=== PATIENT | male | born 1970 | race Caucasian/White ===

== ENCOUNTER 2025-05-29 07:25 | Outpatient (AMB) | payer OTHER, SELFPAY ==
--- OUTSIDE RECORDS SUMMARY | 2025-05-29 07:27 | XMS_ITS | Clinical Summary ---
Author Organization [facility] ity Address [address] [place] [address] Care Team Providers Care Cabin Equipment Supervisor Name Role Phone Arvind Amado MD Primary Care Provider [phone] Social History Tobacco Use Types Packs/Day Years Used Date Smoking Tobacco: Never Assessed Sex and Gender Information Value Date Recorded Sex Assigned at Not on file Legal Sex Male 11:36 PM EST Gender Identity Not on file Sexual Orientation Not on file Plan of Treatment Health Maintenance Due Date Last Done Comments DTaP,Tdap,and Td Vaccines (1 - Tdap) 1989 Hepatitis B Vaccines (1 of 3 - 19+ 3-dose series) 1989 Pneumococcal Vaccine: 50+ Ye ars (1 of 1 - PCV) 2020 Zoster Vaccines (1 of 2) 2020 Depression Screening 09/26/2024 COVID-19 Vaccine (1 - 2023-2 5 season) 2025 Influenza Vaccine (#1) 2025 HIB Vaccines Aged Out No longer eligi ble based on patient's age to complete this topic HPV Vaccines Aged Out No longer eligi ble based on patient's age to complete this topic Hepatitis A Vaccines Aged Out No long er eligible based on patient's age to complete this topic IPV Vaccines Aged Out No longer eligi ble based on patient's age to complete this topic MMR Vaccines Aged Out No longer eligi ble based on patient's age to complete this topic Meningococcal ACWY Vaccine Aged Out N o longer eligible based on patient's age to complete this topic Meningococcal B Vaccine Aged Out No l onger eligible based on patient's age to complete this topic RSV Immunization Patients Un cassidy 20 months Aged Out No longer eligible b ased on patient's age to complete this topic Varicella Vaccines Aged Out No longer eligible based on patient's age to complete this topic Care Teams Cabin Equipment Supervisor Relationship Specialty Start Date End Date Arvind Amado MD [address] [place] [id number] PCP - General 01/06/09
--- OUTSIDE RECORDS SUMMARY | 2025-05-29 07:27 | XMS_ITS | Clinical Summary ---
Author Organization [facility] Address [address] [place] [address] Care Team Providers Care Vacation Guide Name Role Phone Unavailable Primary Care Provider Unavailabl e Source Comments PLEASE NOTE, if this patient is a minor, it may be UNLAWFUL to discuss sensitive information that is contained in these records (such as FAMILY PLANNING, MENTAL HEALTH or SUBSTANCE ABUSE) with the minor patient's parent or other person without the patient's specific authorization.[facility] Allergies Active Allergy Reactions Criticality Noted Date Comments Latex Rash 01/14/2016 Medications entacapone (COMTAN) 200 mg tabletIndicati ons:Parkinson' s disease ([facility]) Take 1 Tab by mouth 4 (four) times daily. PER NEURO. 6 Active Miscellaneous Medical Supply miscIndication s:Parkinson's disease ([facility]) by miscellaneous route once daily. URINALS. DX: PARKINSON'S DISEASE 30 Each 1 6 Active carbidopa-levo dopa (SINEMET) 25-100 mg per tabletIndicati ons:Parkinson' s disease ([facility]) Take 1.5 Tabs by mouth 5 (five) times daily. PER NEURO. 6 Active diclofenac (VOLTAREN) 1 % gelIndications :Arthritis of left knee Apply 4 g left knee tid. 100 g 2 7 Active Active Problems Problem Noted Date Diagnosed Date Arthritis of left knee 06/20/2017 Overview (06/20/2017): X-rays 05/29/17 mild degenerative changes within lateral tibiofemoral compartment Parkinson's disease ([facility]) 01/14/2016 Overview (01/14/2016): Dx: 1995; f/u with Neurologist Dr. Benavides in [place] S/P deep brain stimulator placement ~2005 Social History Tobacco Use Types Packs/Day Years Used Date Smoking Tobacco: Never Smokeless Tobacco: Never Alcohol Use Standard Drinks/Week Comments No 0 (1 standard drink = 0.6 oz pur e alcohol) Social Connections Answer Date Recorded Social Connections and Isolation 0 05/19/2019 Financial Resource Strain Answer Date R ecorded Financial Resource Strain 0 2018 Stress Answer Date Recorded Stress 0 05/19/2019 Physical Activity Answer Date Recorded Physical Activity 0 05/19/2019 Food Insecurity Answer Date Recorded Food 0 05/19/2019 Transportation Needs Answer Date Record ed Transportation 0 05/19/2019 Housing Stability Answer Date Recorded Housing 0 05/19/2019 Safety and Environment Answer Date Gion rded Safety 0 05/19/2019 Utilities Answer Date Recorded Utilities 0 05/19/2019 Employment Answer Date Recorded Employment 0 05/19/2019 Sex and Gender Information Value Date Recorded Sex Assigned at Not on file Legal Sex Male 11:36 AM PDT Gender Identity Not on file Sexual Orientation Not on file Last Filed Vital Signs Vital Sign Reading Time Taken Comments Blood Pressure 127/80 06/20/2017 11:17 AM EDT Pulse 72 06/20/2017 11:17 AM EDT Temperature 36.9 C (98.4 F) 06/20/2017 11:17 AM EDT Respiratory Rate 12 06/01/2016 10:50 AM EDT Oxygen Saturation - - Inhaled Oxygen Concentration - - Weight - - Height - - Body Mass Index - - Plan of Treatment Not on file [place]
--- OUTSIDE RECORDS SUMMARY | 2025-05-29 07:27 | XMS_ITS | Patient Health Record ---
[facility] Address [address] [place] [address] Care Team Providers Care Esthetics Instructor Name Role Phone Clint Mack Unavailable [phone] Reason For Referral No Information Medications Medication SIG (Take, Route, Fr equency, Duration) Notes Start Date End Date Status Sinemet 10-100 MG 1 tablet Orally Thre e times a day; Duration: 30 day(s) Active Plan Of Treatment No Information Insurance Providers Payer Name Payer Address Payer Phone Subscriber Number Group Number Insured Name Patient Relationship to Insured Coverage Start Date Coverage End Date [facility] [address] [address] [place] [phone] [id number] Shashi Pang Self - patient is the insured
--- OUTSIDE RECORDS SUMMARY | 2025-05-29 07:27 | XMS_ITS | Clinical Summary ---
Author Organization [facility] Address [address] [place] [address] Care Team Providers Care Laborer/Grade Check Name Role Phone Ref, Has No Pcp Or Primary Care Provider Unavail able Allergies Active Allergy Reactions Criticality Noted Date Comments Hydromorphone Vomiting 12/30/2017 Latex Rash 01/14/2016 Medications amoxicillin (AMOXIL) 500 mg capsule TAKE ONE CAPSULE BY MOUTH EVERY 8 HOURS UNTIL GONE 0 8 Active diclofenac (VOLTAREN) 1% gel 7 Active miscellaneous medical supply misc by miscellaneous route once daily. URINALS. DX: PARKINSON'S DISEASE 6 Active cyclobenzaprin e (FLEXERIL) 5 mg tablet 1 tablet as needed daily 30 tablet 3 Active carbidopa-levo dopa (SINEMET) 25-100 mg tablet Take 2 tablets by mouth 5 times a day. 900 tablet 3 5 02/27/20 26 Active carbidopa-levo dopa ER/CR (SINEMET ER/CR) 50-200 mg tablet TAKE ONE TABLET BY MOUTH 5 TIMES A DAY 405 tablet 5 Active Active Problems Problem Noted Date Diagnosed Date Parkinson disease 12/30/2017 Dyskinesia, drug-induced 12/30/2017 Status post deep brain stimulator placement 02/2018 Encounters Date Type Department Care Team Description 05/13/2025 Refill [facility] Neurology [address] [place] [address] [address] [place] [address] Danny Cabrera MD 05/11/2025 Refill [facility] Neurology [address] [place] [address] [address] [place] [address] Danny Cabrera MD from Last 3 Months Family History Medical History Relation Name Comments No Known Problems Mother Relation Name Status Comments Father Mother Alive Social History Tobacco Use Types Packs/Day Years Used Date Smoking Tobacco: Never Smokeless Tobacco: Never Tobacco Cessation:Counseling Given: Not Answered Alcohol Use Standard Drinks/Week Comments No 0 (1 standard drink = 0.6 oz pur e alcohol) Sex and Gender Information Value Date Recorded Sex Assigned at Not on file Legal Sex Male 4:22 PM EST Gender Identity Male 11/18/2017 4:26 PM EST Sexual Orientation Not on file Last Filed Vital Signs Vital Sign Reading Time Taken Comments Blood Pressure 120/90 05/11/2023 9:21 AM EDT Pulse 92 05/11/2023 9:21 AM EDT Temperature 36.7 C (98.1 F) 11/11/2022 9:24 AM EST Respiratory Rate 20 04/17/2018 8:44 AM EDT Oxygen Saturation 95% 05/11/2023 9:21 AM EDT Inhaled Oxygen Concentration - - Weight 113.4 kg (250 lb) 05/11/2023 9:21 AM EDT Height - - Body Mass Index - - Plan of Treatment Health Maintenance Due Date Last Done Comments Cologuard 1970 Colon Cancer Screening 1970 Colonoscopy 1970 FOBT / Fit Test 1970 HIV Screening 1970 Sigmoidoscopy 1970 Hepatitis B Vaccines (1 of 3 - 19+ 3-dose series) 03/1989 DTaP,Tdap,and Td Vaccines (1 - Tdap) 1992 Pneumococcal Vaccine: 50+ Years (1 of 1 - PCV) 020 Zoster Vaccines (1 of 2) 2020 Alcohol/Substance Use Screening 09/26/2024 COVID-19 Vaccine (1 - season) 2025 Influenza Vaccine (#1) 2025 RSV Vaccine (60+ years old a nd patients) (1 - 1-dose 75+ series) 2045 Insurance [place] Care Teams Laborer/Grade Check Relationship Specialty Start Date End Date Ref, Has No Pcp Or DO NOT EDIT THIS RECORD VIA PROVIDER ON THE FLY PCP - General Lead Caregiver 12/30/17
--- NOTE | 2025-05-29 07:39 | MHC.OFFVIS ---
Vital Signs 05/29/25 07:42 Height 6 ft 2 in BP 118/76 Blood Pressure Location Rt brachial Position Sitting Pulse 82 Pulse Source Pulse Oximeter Pulse Oximetry (%) 97 Oxygen Delivery Method Room Air Intake Visit Reasons: ENP - Parkinson's Intake Note: Parkinson's Home Aide Required: Yes Home Aide Name: iPad with MD Accompanied by: Spouse Allergies hydromorphone (From Dilaudid) Allergy (Unknown, Verified 05/29/25 07:44) Unknown Medication List - Last Reconciled 05/29/25 by Omayra Cazares MD carbidopa-levodopa 25-100 mg 2 tabs PO .5 times a day 30 days carbidopa-levodopa 50-200 mg ER 1 tab PO .5 times a day cyclobenzaprine 5 mg PO TID PRN HPI Comments Details: 54y/o Bahamian speaking male comes for further management of Prakinsons disease. He was diagnosed with parkinsons disease in 1994 at [facility] when he had tremors.He was followed up at [facility] and wants to be transferred here. He is dependant on all ADLs. He has a motorized wheelchair and is dykinetic most of the day. SLeep- wake sup when medications wears off . He has end of dose wearing off and freezing He is on Carbidopa/levodopa 25/100 2 tabs 5 times a day Carbidopa/levodopa ER 50/200 1 tab 5 times a day He takes it when meds wear off and alas snot have a regular schedule . Memory- Ok Mood stable SPeech- OK Mild drooling He has falls when he does not use the wheelchair [facility] Medical History (Updated 05/29/25 @ 14:56 by Omayra Cazares MD) Parkinson's disease with dyskinesia Obesity, class 1 GERD (gastroesophageal reflux disease) Mildly obese Trigger finger Parkinson disease Surgical History H/O vertebroplasty Family History Maternal Grandmother Diabetes Parkinson disease Social History Alcohol intake: former Patient Tobacco Use Status: Never used Tobacco Physical Exam Vital Signs: Last Vital Signs Pulse 82 05/29/25 07:42 BP 118/76 09/03/25 07:42 Pulse Ox 97 05/29/25 07:42 Oxygen Delivery Method Room Air 05/29/25 07:42 Const General: cooperative, healthy appearing, comfortable and no acute distress Nutritional Appearance: average body habitus Orientation/consciousness: patient oriented x3 Neuro Other: Moderate dyskinesias Patient took his medications 30 minutes valero No tremors 1 + cogwheel rigidity FFM and foot taps - mildly decreased R>L gait - in wheel chair General: patient oriented x3, moves all extremities, no focal motor deficits and Unable to assess gait Cranial nerves: Yes Facial sensation intact/muscles of mastication intact, Yes Bilaterally intact EOM present, Yes Nystagmus not present, Yes Normal facial strength present and Yes Midline tongue present Cognition (Neuro): normal cognition Gait exam (Neuro): Unable to assess gait Motor exam (neuro): 5/5 motor strength present throughout Deep tendon reflexes (DTR's): Right triceps reflex intensity grade: 1+, Left triceps reflex intensity grade: 1+, Rt Biceps (C5, C6): 1+, Left biceps reflex intensity grade: 1+, Right brachioradialis reflex intensity grade: 1+, Left brachioradialis reflex intensity grade: 1+, Right patellar reflex intensity grade: 1+ and Left patellar reflex intensity grade: 1+ Coordination: [id number] test normal Assessment & Plan Assessment & Plan (1) Parkinson's disease with dyskinesia: Code(s): G20.B1 - Parkinson's disease with dyskinesia, without mention of fluctuations Category: Medical Plan Take medications regularly sinemet 25/100 2 tabs and sinemet CR 50/200- 8am, 12 noon, 4 pm, 8pm , 12 AM AMANATDINE- was tried and he did not tolerate He says he has tried multiple meds and had poor tolerance and response. Medications: New carbidopa-levodopa 50-200 mg ER 1 tab PO .5 times a day 150 tabs 6RF Changed From carbidopa-levodopa 25-100 mg 2 tabs PO .5 times a day To carbidopa-levodopa 25-100 mg 2 tabs PO .5 times a day 300 tabs 6RF 30 days Coding Level of Care Code New Pt Level 4 (49764) Complex EM visit Add On G2211 Diagnoses Parkinson's disease with dyskinesia G20.B1
[2025-05-29 07:42] VITALS: BP 118/76; PULSE 82; O2SAT 97
== END 2025-05-29 08:57 | disposition home or self-care (01) ==
LOC: HO.HSMS 07:25
PROVIDERS: PCP Nurse Practitioner Family; Visit Provider Psychiatry & Neurology Neurology
DX: G20.B1 Parkinson's disease with dyskinesia, without mention of fluctuations (principal)
CPT/HCPCS: 99204; G2211

== ENCOUNTER → 2025-05-29 07:25 | Outpatient (BNVA) | payer OTHER, SELFPAY | PROVIDERS: PCP Nurse Practitioner Family; Visit Provider Psychiatry & Neurology Neurology | DX: G20.B1 Parkinson's disease with dyskinesia, without mention of fluctuations (principal) | CPT/HCPCS: 99202 ==